=== PATIENT | male | born 1995 | race Caucasian/White ===

== ENCOUNTER 2023-07-06 16:47 | Emergency (ER) | payer OTHER, SELFPAY ==
[2023-07-06 17:06] VITALS: BP 139/89; PULSE 66; RESP 16; TEMP 37.1; O2SAT 100
--- NOTE | 2023-07-06 17:40 | ED.GENADULT ---
HPI - General Adult General Chief complaint: Upper Respiratory Infection Stated complaint: Sore Throat Time Seen by Provider: 07/06/23 17:40 Source: patient Mode of arrival: ambulatory Limitations: no limitations History of Present Illness HPI narrative: 27-year-old male patient presents to the [facility] with complaints of lymph node pain and swelling to the front of the left ear for over a week now. Patient denies any fevers, body aches chills. Denies any sore throat. Denies any abdominal pain, nausea, vomiting or diarrhea. Denies any chest pain or shortness of breath. Patient states he has been taking ibuprofen for the pain which has helped. Denies any ear pain. Review of Systems Review of Systems: CONSTITUTIONAL: Denies fever, chills, or sweats. EYES: Denies visual changes, redness, or discharge. ENT: Denies rhinorrhea, congestion, sore throat, or otalgia. Positive lymph node pain to the front of the left ear CARDIOVASCULAR: Denies chest pain, palpitations, or edema. RESPIRATORY: Denies cough or dyspnea. GASTROINTESTINAL: Denies abdominal pain, nausea, vomiting, or diarrhea. GENITOURINARY: Denies dysuria or hematuria. SKIN: Denies rash or itching. MUSCULOSKELETAL: Denies back pain, joint pain, or myalgia. NEUROLOGIC: Denies headache, numbness, or weakness. PSYCHIATRIC: Denies anxiety or depression. PMFSH Comments At the time of my signature I agree with nursing past medical history, surgical, social, and family history. There is no relevant family history pertinent to the presenting complaint. Exam Narrative: GENERAL: Well-appearing, well-nourished, and in no acute distress. HEAD: Normocephalic, atraumatic. EYES: PERRLA and EOMI. ENT: Nares clear, no rhinorrhea or epistaxis. Mucous membranes moist. Posterior pharynx with no erythema, tonsillar enlargement, exudates or lesions present. Bilateral TMs are clear with no erythema or foreign bodies to the canal NECK: Supple. No obvious lymphadenopathy palpated at this time CHEST: Clear to auscultation. No respiratory distress. HEART: Regular rate and rhythm. No murmur heard. Normal peripheral pulses. ABDOMEN: Soft, nontender, nondistended, normal active bowel sounds. EXTREMITIES: Normal range of motion. No edema. SKIN: Warm, dry, no rash. NEURO: No focal deficits. Alert and oriented x3. Course Course Level of Care: Express Care Visit Vital Signs Vital signs: Vital Signs Temperature 37.1 C 07/06/23 17:06 Pulse Rate 66 07/06/23 17:06 Respiratory Rate 16 07/06/23 17:06 Blood Pressure 139/89 07/06/23 17:06 Pulse Oximetry 100 07/06/23 17:06 Oxygen Delivery Room Air 07/06/23 17:06 Temperature 37.1 C 07/06/23 17:06 Pulse Rate 66 07/06/23 17:06 Respiratory Rate 16 07/06/23 17:06 Blood Pressure 139/89 07/06/23 17:06 Pulse Oximetry 100 07/06/23 17:06 Oxygen Delivery Room Air 07/06/23 17:06 Vital signs reviewed The patient has been informed that they may have pre-hypertension or Hypertension based on a BP reading in the department. I recommend that the patient call the primary care provider listed on their discharge instructions or a physician of their choice this week to arrange follow up for further evaluation of possible pre-hypertension or Hypertension Medical Decision Making MDM Narrative Medical decision making narrative: Discussed with patient that given the fact that he really does not have any symptoms today and the fact that his vitals are stable and has a grossly negative a a physical exam, I am not seeing any diagnoses process that can be treated at this time. Discussed with patient if he continues to have concerns about lymphadenopathy to the left ear I would recommend that he follow-up with his primary doctor for blood work but I do not see any obvious infection at this time. Patient continue taking Tylenol ibuprofen as needed for pain however is not unusual to have swollen lymph nodes for a couple weeks follow
== END 2023-07-06 18:01 | disposition home or self-care (01) ==
PROVIDERS: Emergency Provider Nurse Practitioner Family
DX: B34.9 Viral infection, unspecified (principal); R59.0 Localized enlarged lymph nodes
CPT/HCPCS: 87081; 87880; 99203; G0463